=== PATIENT | male | born 1985 | race Caucasian/White ===

== ENCOUNTER 2019-04-14 06:47 | Outpatient (CLI) | payer OTHER, SELFPAY ==
[2019-04-14] VITALS (7 sets, daily range): BP systolic 94–119; BP diastolic 50–63; PULSE 57–74; RESP 16; TEMP 36.1; O2SAT 100
--- NOTE | 2019-04-14 06:50 | DI.RAD.S_ITS ---
PROCEDURE: PAIN SI JOINT INJECTION INDICATIONS: SACROCCOCYGEAL DISORDER FINDINGS: Fluoroscopic spot filming was performed to verify placement of needle(s) at the left SI joint as labeled on the films. Appropriate location(s) of the needle tip(s) was confirmed by injection of iodinated contrast. IMPRESSION: Fluoroscopy for pain management. Dictated by: Jared Vera M.D. on 04/14/2019 at 9:36 Approved by: Jared Vera M.D. on 04/14/2019 at 9:37
--- NOTE | 2019-04-14 06:57 | PC.NURSE ---
DR NASH NOTIFIED OF LOW BP
[2019-04-14] MEDS: MIDAZOLAM 5 MG/5 ML VIAL IV (08:00)
[2019-04-14] MEDS: IOPAMIDOL 15 ML VIAL 3 ML INJ (08:06)
[2019-04-14] MEDS: BUPIVACAINE 0.5% (PF) VIAL 2 ML INJ (08:07)
[2019-04-14] MEDS: BETAMETHASONE 30 MG/5 ML MDV 12 MG INJ (08:07)
--- NOTE | 2019-04-14 08:10 | PC.NURSE ---
pt tolerated procedure well. Able to get off table with standby assist. Transferred pt to pre procedure room for continued monitoring with Melva ALVAREZ.
--- NOTE | 2019-04-14 08:13 | PM.PROC.1 ---
Procedures Date/Time Date of procedure: 04/14/19 Time of procedure: 08:13 General Procedure description: PREOP Dx: Sacroiliac joint pain/DJD POST OP DX: Sacroiliac Joint Pain/DJD Procedures: Fluoroscopic guided contrast controlled left sacroiliac joint injection Physician: Dexter Coyle D.O. Indications: Angel is referred by for treatment of left sacroiliac joint DJD Description of procedure Fluoroscopic guided, contrast controlled left sacroiliac joint injection Following review of allergies and review of potential side effects and complications, including, but not necessarily limited to, infection, allergic reaction, local tissue breakdown, temporary as well as permanent nerve injury, paralysis, stroke and possible , the patient indicated that they understood and agreed to proceed. An informed consent was signed by the patient, witnessed by a nurse, and placed in the patient's chart. Additionally, other treatment options including modalities, medications, and physical therapy were reviewed with the patient. After review of previous anaesthesic history and IV conscious sedation the patient was deemed safe to proceed with todays procedure with IV conscious sedation as ASA class II designation. Safety time-out was performed to confirm patient ID, procedure to be performed and site of procedure. IV sedation was accomplished with a combination of 2mg of Versed administered by the RN after DO order, titrated to patient comfort during the course of the procedure while the patient remained responsive to all verbal commands. In the prone position following sterile prep and drape of the pelvic region, the hyper lucency on in the inferior aspect of the left sacroiliac joint was identified fluoroscopically the skin was anesthetized be a 25 gauge 1 eventual with approximately 2 cc of 1% lidocaine solution. At this point, a 22 gauge 3 in spinal needle was atraumatically introduced and advanced under fluoroscopic guidance into the inferior aspect of the left sacroiliac joint. Following negative aspiration, approximately 0.3 cc of Isovue-300 was injected confirming intra-articular placement without vascular uptake. Radiographic data, including multiple fluoroscopic views of the pelvis, reveals a spinal needle in the left sacroiliac joint hyper lucent zone. Subsequent view show flow contrast tear superiorly and inferiorly within the joint capsule without vascular intrathecal uptake. At this point a total of 1 cc or 0 8 of 0.5% Marcaine was combined with 1 cc of 6 mg of betamethasone was injected without incident. The patient tolerated the procedure well without signs or symptoms of complications prior to transfer to the recovery area for further monitoring. The patient was then transferred to the recovery area with a bur observed for an appropriate time after the injection. The patient reverted a vas score of 7 prior to the procedure and postprocedure vas of 1. Total fluoroscopy time: 22.7 sec Total conscious sedation time: 24 min Postop instructions The patient was provided with a pain like to continue to record the patient's response to the target specific procedure prior to the patient's follow-up visit with the referring physician. Additionally, specific post injection care instructions and a contact number to our office were provided if concerns arise regarding the possible complications associated with procedure are suspected. Dexter Coyle D.O. Complications: none
== END 2019-04-14 08:47 | disposition home or self-care (01) ==
LOC: RAD 06:49
PROVIDERS: PCP Ophthalmology; Visit Provider Physical Medicine & Rehabilitation
DX: M47.27 Other spondylosis with radiculopathy, lumbosacral region (principal); M53.3 Sacrococcygeal disorders, not elsewhere classified
CPT/HCPCS: 27096; 99152; J0702; J2250; J3010